=== PATIENT | male | born 1980 | race Two or more races ===

== ENCOUNTER 2020-09-15 15:22 | Emergency (ER) | payer OTHER ==
[~2020-09-15] VITALS: Ht 182.9 cm; Wt 90.7 kg
[2020-09-15] MEDS ORDERED: HYDROcodone-ACET 10/325MG TAB PO ONE (15:45)
[2020-09-15 16:52] VITALS: BP 123/84
== END 2020-09-15 18:10 | disposition home or self-care (01) ==
LOC: ER 15:22
DX: R51.9 Headache, unspecified (principal)
CPT/HCPCS: 70450